=== PATIENT | female | born 1955 | race Caucasian/White ===

== ENCOUNTER 2021-08-22 14:01 | Outpatient (CLI) | payer BC | END 2021-08-22 14:02 | disposition home or self-care (01) | LOC: CSHMAMMO 14:01 | PROVIDERS: ATTEND Obstetrics & Gynecology | DX: Z12.31 Encounter for screening mammogram for malignant neoplasm of breast (principal); M85.851 Other specified disorders of bone density and structure, right thigh; M85.852 Other specified disorders of bone density and structure, left thigh; N64.89 Other specified disorders of breast; Z98.82 Breast implant status | CPT/HCPCS: 77063; 77067; 77080 ==

== ENCOUNTER 2021-09-12 09:20 | Outpatient (CLI) | payer BC | END 2021-09-12 09:21 | disposition home or self-care (01) | LOC: CSHMAMMO 09:20 | PROVIDERS: ATTEND Obstetrics & Gynecology | DX: N64.89 Other specified disorders of breast (principal) | CPT/HCPCS: G0279 ==

== ENCOUNTER 2022-09-03 13:30 | Outpatient (CLI) | payer MEDICARE, BC | END 2022-09-03 13:31 | disposition home or self-care (01) | LOC: CSHMAMMO 13:30 | PROVIDERS: ATTEND Obstetrics & Gynecology | DX: Z12.31 Encounter for screening mammogram for malignant neoplasm of breast (principal); Z98.82 Breast implant status | CPT/HCPCS: 77063; 77067 ==